=== PATIENT | male | born 1975 | race Caucasian/White ===

== ENCOUNTER 2018-08-11 01:01 | Emergency (ER) | payer MEDICAID, OTHER ==
[~2018-08-11] VITALS: Ht 172.7 cm; Wt 73.2 kg
[2018-08-11 01:04] VITALS: Ht 172.7 cm; Wt 73.2 kg
[2018-08-11] MEDS ORDERED: KETOROLAC 30 MG INJ IM STA (02:09)
--- NOTE | 2018-08-11 02:09 | ERD ---
ER Documentation Chief Complaint Chief Complaint back pain rad to testicle area HPI This is a 42-year-old male who presents here in the emergency department with complaints of left-sided testicular pain. Also complains of lower back pain that is painful and range of motion. Denies any trauma. Denies blood in urine. Denies difficult walking due to pain. He also complains of dysuria. Denies headache, head injury, loss of consciousness, dizziness, neck pain, neck stiffness, throat pain, difficulty swallowing, difficulty breathing lying flat, shoulder pain, chest pain, back pain, abdominal pain, nausea, vomiting, constipation, diarrhea, loss of bowel and bladder control, trauma, injury, fal ls, difficulty walking due to pain, numbness or tingling sensation, calf pain, recent travel, recent major surgery in the last 3 weeks, calf pain, recent long travel, recent exposure to any illness, recent antibiotic use in the last 3 months, fever, chills, seizures. Past medical history: Surgical history: Social: Denies smoking, use of alcoholic beverages, use of illegal drugs. ROS All systems reviewed and are negative except as per history of present illness. Medications Home Meds Active Scripts Doxycycline Hyclate* (Doxycycline Hyclate*) 100 Mg Tablet.dr, 100 MG PO BID for 7 Days, TAB Prov:PASILABAN,YVETTEAR F 08/11/18 Cyclobenzaprine Hcl* (Cyclobenzaprine Hcl*) 10 Mg Tablet, 10 MG PO TID PRN for MUSCLE SPASMS, #15 TAB Prov:PASILABAN,KLAR F 08/11/18 Ibuprofen* (Motrin*) 800 Mg Tab, 800 MG PO Q6H PRN for PAIN AND OR ELEVATED TEMP, #30 TAB Prov:PASILABAN,KLAR F 08/11/18 Allergies Allergies: Coded Allergies: No Known Allergy (Unverified , 08/11/18) Physical Exam Vitals Physical Exam Const: No acute distress Head: Atraumatic Eyes: Normal Conjunctiva. Color appears normal for ethnicity. ENT: Normal External Ears, Nose and Mouth. Neck: Full range of motion. No meningismus. Resp: Clear to auscultation bilaterally Cardio: Regular rate and rhythm, no murmurs Abd: Soft, non tender, non distended. Normal bowel sounds. Negative Lal sign. Negative Vania sign (heel jar test). Negative psoas sign. Negative Rovsing sign. Able to jump 10 times without developing lower abdominal pain. No CVA tenderness. Ambulatory with steady gait and without pain to abdomen. : No penile swelling. No lesions. No penile bleeding. No penile discharge. Scrotal area: Has swelling. Tenderness to palpation. No discoloration. Bilateral inguinal he has no swelling/bulging/tenderness. Skin: No petechiae or rashes. Color appears normal for ethnicity. No skin tenting. No signs of severe dehydration. Back: No midline or flank tenderness. L-spine is in midline and has no bulging/discoloration/swelling/midline tenderness but there is pain to range of motion. C-spine/T-spine are in midline with good and full range of motion and has no swelling/bulging/discoloration/tenderness. Bilateral hips are stable and unremarkable. No saddle anesthesia. No neurovascular deficits. Ext: No cyanosis, or edema. Neur: Awake and alert. No neurological deficits. Psych: Normal Mood and Affect Results 24 hrs Laboratory Tests Test 08/11/18 02:00 Urine Color COLORLESS Urine Clarity CLEAR Urine pH 6.0 Urine Specific [place] 1.004 Urine Ketones NEGATIVE mg/dL Urine Nitrite NEGATIVE mg/dL Urine Bilirubin NEGATIVE mg/dL Urine Urobilinogen NEGATIVE mg/dL Urine Leukocyte Esterase NEGATIVE Marta/ul Urine Hemoglobin NEGATIVE mg/dL Urine Glucose NEGATIVE mg/dL Urine Total Protein NEGATIVE mg/dl Chlamydia trachomatis RNA (TMA) NOT DETECTED Chlamydia/GC Comment SEE NOTE Neisseria gonorrhoeae RNA (TMA) NOT DETECTED Current Medications Medications Dose Sig/Mauricio Start Time Status Last (Trade) Ordered Route PRN Stop Time Admin Dose Reason Admin Ketorolac 30 mg ONCE STAT 08/11/18 DC 08/11/18 Tromethamine IM 02:09 03:21 (Toradol) 08/11/18 02:11 Procedures/MDM Diagnostic tests: Urinalysis: Reviewed. Culture urine: Sent. Ultrasound of the testicle/scrotal area: 1. Testes appear unremarkable. 2. 0.4 cm right-sided epididymal cyst or spermatocele is noted. 3. Small bilateral hydroceles are present. X-ray of the L-spine: 1. No acute osseous abnormalities. Treatment: Toradol IM. Re-evaluation: Denies chest pain, back pain, abdominal pain, pelvic pain, testicular pain. No saddle anesthesia. No neurovascular deficit. No neurological deficits. Stated that he feels much better at this time. Stated that he is comfortable to go home. Differential diagnosis I have low suspicion for sepsis, acute abdomen, pyelonephritis, nephrolithiasis, obstructing kidney stones, septic stones, spinal fracture, cauda equina syndrome, testicular torsion. Final diagnosis: Treated for orchitis. Treated for back pain. Patient is insisting to be prescribed with antibiotic. Prescription: Motrin. Doxycycline. Flexeril. Follow-up with PCP in the next 24-48 hours. Follow-up with urologist in the next 24 to 48 hours. Come back here in the emergency department for any new symptoms or any worsening symptoms. All questions and concerns were answered. Patient and family members verbalized understanding and agreed with plan of care. Hemodynamically stable on discharge. Departure Diagnosis: Primary Impression: Epididymal cyst Additional Impressions: Orchitis Back pain Muscle spasm Condition: Stable Additional Instructions: Follow-up with PCP in the next 24-48 hours. Follow-up with urologist in the next 24 to 48 hours. Come back here in the emergency department for any new symptoms or any worsening symptoms. ANA XIONG Aug 11, 2018 02:09
[2018-08-11] MEDS ORDERED: IBUP800T48 PO (05:17)
[2018-08-11] MEDS ORDERED: CYCL10TA7 PO (05:18)
[2018-08-11] MEDS ORDERED: DOXY100T20 PO (05:18)
[2018-08-11 05:30] VITALS: BP 134/77; PULSE 65; RESP 16
== END 2018-08-11 05:30 | disposition home or self-care (01) ==
LOC: FTE 01:01
DX: N50.9 Disorder of male genital organs, unspecified (principal); N45.2 Orchitis; M62.830 Muscle spasm of back; M54.5 Low back pain
CPT/HCPCS: 72100; 76870; 81003; 87086; 87591; 96372; J1885; Z7502